=== PATIENT | female | born 2000 | race Caucasian/White ===

== ENCOUNTER 2020-09-11 11:17 | Observation (INO) | payer MEDICAID ==
[~2020-09-11] VITALS: Ht 157.5 cm; Wt 75.0 kg
[2020-09-11] MEDS ORDERED: D5%-LACTATED RINGERS 1,000 ML IV SCH (12:00)
[2020-09-11] MEDS ORDERED: PLEASE ENTER HEIGHT AND WEIGHT MC SCH (12:00)
[2020-09-11 12:14] VITALS: BP 125/60
[2020-09-11 12:23] LABS: BASOPHILS % (AUTO) 0 % (0-1); EOSINOPHILS % (AUTO) 0 % (1-7); LYMPHOCYTES % (AUTO) 11 % (22-44); MEAN CORPUSCULAR HEMOGLOBIN 28.7 pg (27.0-34.8); MEAN CORPUSCULAR HGB CONC 32.9 g/dL (32.4-35.8); MEAN PLATELET VOLUME 8.5 fL (7.4-10.4); MONOCYTES % (AUTO) 4 % (2-9); NEUTROPHILS % (AUTO) 85 % (42-75); PLATELET COUNT 127 x10^3/uL (130-400); RED BLOOD COUNT 3.91 x10^6/uL (3.82-5.3); RED CELL DISTRIBUTION WIDTH 22.6 % (9.6-15.2)
[2020-09-11 12:38] LABS: ALBUMIN 2.8 g/dL (3.4-5.0); ANION GAP 6 mmol/L (5-15); CALCIUM 9.1 mg/dL (8.5-10.1); CHLORIDE 109 mmol/L (98-107)
[2020-09-11 12:42] LABS: ALANINE AMINOTRANSFERASE 10 U/L (12-78); ALKALINE PHOSPHATASE 110 U/L (45-117); BILIRUBIN,TOTAL 0.3 mg/dL (0.2-1.0); CREATININE 0.53 mg/dL (0.55-1.02); TOTAL PROTEIN 6.3 g/dL (6.4-8.2)
[2020-09-11 12:49] LABS: MD MORPH REVIEW ONLY; OVALOCYTES 1+; TEAR DROPS 1+
[2020-09-11 12:50] LABS: <PLATELET ESTIMATE> DECREASED; <PLT MORPHOLOGY> NORMAL PLT MORPH; POLYCHROMASIA 1+
[2020-09-11 13:05] LABS: MICROSCOPIC INDICATED
[2020-09-11] MEDS ORDERED: ENOX60SY4 SC (14:01)
[2020-09-11] MEDS ORDERED: PEDI1TAB35 PO (14:03)
[2020-09-11 14:20] LABS: AMPHETAMINE SCREEN, URINE Negative (Negative); BARBITURATE SCREEN, URINE Negative (Negative); BENZODIAZEPINE SCREEN, URINE Negative (Negative); CANNABINOID SCREEN, URINE Negative (Negative); COCAINE SCREEN, URINE Negative (Negative); METHADONE SCREEN, URINE Negative (Negative); OPIATE SCREEN, URINE Negative (Negative)
[2020-09-11] MEDS ORDERED: LACTATED RINGERS 1,000 ML IV SCH (19:00)
== END 2020-09-11 19:38 | disposition home or self-care (01) ==
LOC: LDOP 11:17 → LDIP 14:53
PROVIDERS: ADMIT Obstetrics & Gynecology Maternal & Fetal Medicine; ATTEND Obstetrics & Gynecology Maternal & Fetal Medicine
DX: O36.5930 Maternal care for other known or suspected poor fetal growth, third trimester, not applicable or unspecified (principal); Z20.828 Contact with and (suspected) exposure to other viral communicable diseases; O30.033 Twin pregnancy, monochorionic/diamniotic, third trimester; Z3A.33 33 weeks gestation of pregnancy; Z79.899 Other long term (current) drug therapy
CPT/HCPCS: 36415; 59025; 80053; 80307; 81001; 85025; 85520; 86850; 86900; 87086; 87635; 96360; 96361; G0378; J7120; J7121

== ENCOUNTER 2020-09-25 10:39 | Inpatient (IN) | payer MEDICAID ==
[~2020-09-25] VITALS: Ht 157.5 cm; Wt 77.0 kg
[~2020-09-25 10:39] MED LIST: ENOX60SY4 SC; PEDI1TAB35 PO
[2020-09-25] MEDS ORDERED: METOCLOPRAMIDE 5 MG/ML, 2ML ONE (14:16)
[2020-09-25] MEDS ORDERED: OXYTOCIN 30U/ 0.9% NaCL 500ML 500 ML ONE (14:16)
[2020-09-25] MEDS ORDERED: NEWBORN KIT ONE (14:16)
[2020-09-25] MEDS ORDERED: SODIUM CITRATE/CITRIC ACID 15 ML UDC ONE (14:16)
[2020-09-25] MEDS ORDERED: LACTATED RINGERS 1,000 ML IVBOLUS ONE (14:30)
[2020-09-25] MEDS ORDERED: SODIUM CITRATE/CITRIC ACID 30 ML UDC PO ONE (14:30)
[2020-09-25] MEDS ORDERED: METOCLOPRAMIDE 5 MG/ML, 2ML IV ONE (14:30)
[2020-09-25 15:12] LABS: BASOPHILS % (AUTO) 0 % (0-1); EOSINOPHILS % (AUTO) 0 % (1-7); LYMPHOCYTES % (AUTO) 15 % (22-44); MEAN CORPUSCULAR HEMOGLOBIN 29.2 pg (27.0-34.8); MEAN CORPUSCULAR HGB CONC 33.1 g/dL (32.4-35.8); MEAN PLATELET VOLUME 8.1 fL (7.4-10.4); MONOCYTES % (AUTO) 6 % (2-9); NEUTROPHILS % (AUTO) 79 % (42-75); PLATELET COUNT 124 x10^3/uL (130-400); RED BLOOD COUNT 4.26 x10^6/uL (3.82-5.3)
[2020-09-25 15:13] VITALS: BP 116/60
[2020-09-25 15:40] LABS: MD NO
[2020-09-25] MEDS ORDERED: morphine SULFATE/PF 0.5 MG/ML, 10ML ONE (17:33)
[2020-09-25] MEDS ORDERED: DEXAMETHASONE 4 MG/ML, 1ML ONE (17:36)
[2020-09-25] MEDS ORDERED: SODIUM CHLORIDE 0.9% PF 10ML ONE ×2 (17:36→17:52)
[2020-09-25] MEDS ORDERED: OXYTOCIN 10 UNITS/ML, 1ML ONE (17:36)
[2020-09-25] MEDS ORDERED: CEFAZOLIN 1,000 MG ONE (17:36)
[2020-09-25] MEDS ORDERED: KETOROLAC 30 MG/1 ML ONE (17:36)
[2020-09-25] MEDS ORDERED: ONDANSETRON 2MG/ML, 2ML ONE (17:36)
[2020-09-25] MEDS ORDERED: PHENYLEPHRINE 10 MG/ML ONE (17:52)
[2020-09-25] MEDS ORDERED: SIMETHICONE 80 MG CHEW TAB PO PRN (19:00)
[2020-09-25] MEDS ORDERED: MISOPROSTOL 200 MCG TABLET PR PRN (19:00)
[2020-09-25] MEDS: LACTATED RINGERS 1,000 ML IV SCH ×2 (19:00→19:42)
[2020-09-25] MEDS ORDERED: CARBOPROST TROMETHAMINE 250 MCG/ML, 1ML IM PRN (19:00)
[2020-09-25] MEDS ORDERED: METHYLERGONOVINE 0.2 MG/ML IM PRN (19:00)
[2020-09-25] MEDS ORDERED: ONDANSETRON 2MG/ML, 2ML IV PRN (19:00)
[2020-09-25] MEDS ORDERED: ACETAMINOPHEN 325 MG TABLET PO PRN (19:00)
[2020-09-25] MEDS ORDERED: METHYLERGONOVINE 0.2 MG/ML IM ONE (19:10)
[2020-09-25] MEDS: OXYTOCIN 30U/ 0.9% NaCL 500ML 500 ML IV SCH (19:45)
[2020-09-25 20:45] VITALS: BP 108/48
[2020-09-25] MEDS ORDERED: DIPHENHYDRAMINE 50 MG/ML, 1ML IVPush PRN (21:00)
[2020-09-25] MEDS ORDERED: ONDANSETRON 2MG/ML, 2ML IVPush PRN (21:00)
[2020-09-25] MEDS ORDERED: morphine SULFATE 10 MG/ML, 1ML IVPush PRN (21:00)
[2020-09-25] MEDS: OXYcodone/APAP 5/325MG TABLET PO PRN ×2 (22:29→22:30)
[2020-09-26] VITALS: BP 113/73
[2020-09-26 02:35] LABS: BASOPHILS % (AUTO) 0 % (0-1); EOSINOPHILS % (AUTO) 0 % (1-7); LYMPHOCYTES % (AUTO) 7 % (22-44); MEAN CORPUSCULAR HEMOGLOBIN 29.1 pg (27.0-34.8); MEAN CORPUSCULAR HGB CONC 32.9 g/dL (32.4-35.8); MEAN PLATELET VOLUME 8.6 fL (7.4-10.4); MONOCYTES % (AUTO) 5 % (2-9); NEUTROPHILS % (AUTO) 89 % (42-75); PLATELET COUNT 122 x10^3/uL (130-400); RED BLOOD COUNT 4.16 x10^6/uL (3.82-5.3)
[2020-09-26 02:55] LABS: MD NO
[2020-09-26] MEDS: LACTATED RINGERS 1,000 ML IV SCH ×2 (03:00→05:00)
[2020-09-26] MEDS: OXYcodone/APAP 5/325MG TABLET PO PRN ×4 (04:26→17:42)
[2020-09-26 04:30] VITALS: BP 104/68
[2020-09-26] MEDS: OXYTOCIN 30U/ 0.9% NaCL 500ML 500 ML IV SCH (05:00)
[2020-09-26] MEDS: DOCUSATE 100 MG CAPSULE PO PRN ×2 (07:38→19:14)
[2020-09-26] MEDS: PRENATAL VIT/IRON/FA 1 EACH TABLET PO SCH (07:38)
[2020-09-26 07:50] VITALS: BP 106/74
[2020-09-26 13:36] VITALS: BP 109/70
[2020-09-26] MEDS: ENOXAPARIN 60 MG/0.6 ML SQ SCH (19:14)
[2020-09-26 20:00] VITALS: BP 106/69
[2020-09-26] MEDS ORDERED: DIPHENHYDRAMINE 25 MG CAPSULE ONE (21:56)
[2020-09-26] MEDS: OXYcodone IR 5MG TABLET PO PRN (22:02)
[2020-09-27] MEDS: OXYcodone IR 5MG TABLET PO PRN ×4 (02:28→20:33)
[2020-09-27] MEDS ORDERED: DIPHENHYDRAMINE 50 MG/ML, 1ML IVPush PRN (03:00)
[2020-09-27] MEDS: OXYcodone/APAP 5/325MG TABLET PO PRN (06:43)
[2020-09-27] MEDS: ENOXAPARIN 60 MG/0.6 ML SQ SCH ×2 (06:43→18:35)
[2020-09-27] MEDS: PRENATAL VIT/IRON/FA 1 EACH TABLET PO SCH (09:49)
[2020-09-27] MEDS: DOCUSATE 100 MG CAPSULE PO PRN ×2 (09:49→19:46)
[2020-09-27] MEDS: ACETAMINOPHEN 325 MG TABLET PO PRN ×2 (14:04→19:47)
[2020-09-27] MEDS: DIPHENHYDRAMINE 25 MG CAPSULE PO PRN ×2 (16:18→21:59)
[2020-09-27 19:52] VITALS: BP 111/70
[2020-09-28] MEDS: ACETAMINOPHEN 325 MG TABLET PO PRN ×5 (00:41→19:14)
[2020-09-28] MEDS: OXYcodone IR 5MG TABLET PO PRN ×6 (00:42→22:34)
[2020-09-28] MEDS: ENOXAPARIN 60 MG/0.6 ML SQ SCH ×2 (07:29→19:14)
[2020-09-28 07:30] VITALS: BP 104/69
[2020-09-28] MEDS ORDERED: DOCU-186 PO (09:38)
[2020-09-28] MEDS ORDERED: OXYcodone/APAP 5/325MG PO (09:38)
[2020-09-28] MEDS: DOCUSATE 100 MG CAPSULE PO PRN ×2 (09:51→19:14)
[2020-09-28] MEDS: PRENATAL VIT/IRON/FA 1 EACH TABLET PO SCH (09:51)
[2020-09-28 19:12] VITALS: BP 110/74
[2020-09-29] MEDS: ACETAMINOPHEN 325 MG TABLET PO PRN ×2 (00:42→12:33)
[2020-09-29] MEDS: OXYcodone IR 5MG TABLET PO PRN ×3 (03:12→12:33)
[2020-09-29] MEDS: ENOXAPARIN 60 MG/0.6 ML SQ SCH (07:15)
[2020-09-29 07:45] VITALS: BP 135/89
[2020-09-29] MEDS: PRENATAL VIT/IRON/FA 1 EACH TABLET PO SCH (07:51)
[2020-09-29] MEDS: DOCUSATE 100 MG CAPSULE PO PRN (07:51)
== END 2020-09-29 12:40 | disposition home or self-care (01) | DRG 540 ==
LOC: LDIP 14:02 → 2NW 20:29
PROVIDERS: ADMIT Obstetrics & Gynecology Maternal & Fetal Medicine; ATTEND Obstetrics & Gynecology Maternal & Fetal Medicine
PROC: 10D00Z1 Extraction of Products of Conception, Low, Open Approach (ICD-10-PCS; principal; 2020-09-25)
DX: O36.5931 Maternal care for other known or suspected poor fetal growth, third trimester, fetus 1 (principal); O32.1XX2 Maternal care for breech presentation, fetus 2; O32.2XX2 Maternal care for transverse and oblique lie, fetus 2; Z20.822 Contact with and (suspected) exposure to COVID-19; Z37.2 Twins, both liveborn; Z3A.35 35 weeks gestation of pregnancy; Z83.2 Family history of diseases of the blood and blood-forming organs and certain disorders involving the immune mechanism; Z86.718 Personal history of other venous thrombosis and embolism; Z86.711 Personal history of pulmonary embolism; O30.033 Twin pregnancy, monochorionic/diamniotic, third trimester; O69.81X0 Labor and delivery complicated by cord around neck, without compression, not applicable or unspecified; O99.12 Other diseases of the blood and blood-forming organs and certain disorders involving the immune mechanism complicating childbirth; D68.51 Activated protein C resistance
CPT/HCPCS: 36415; 82565; 85025; 85520; 86592; 86850; 86900; 86923; 87635; 88307; G0378; J0690; J1100; J1650; J1885; J2274; J2405; J1200; J2210; J2270; J2370; J2590; J2765; J7120; Q0163

== ENCOUNTER → 2020-10-01 | Outpatient (CLI) | payer MEDICAID ==
[~2020-10-01] MED LIST changes: +DOCU-186 PO; +OXYcodone/APAP 5/325MG PO
== END | disposition home or self-care (01) ==
LOC: WOUND 13:50
PROVIDERS: ATTEND Nurse Practitioner Family
DX: O90.0 Disruption of cesarean delivery wound (principal); Z79.899 Other long term (current) drug therapy; Z86.711 Personal history of pulmonary embolism; Z86.718 Personal history of other venous thrombosis and embolism; Y83.8 Other surgical procedures as the cause of abnormal reaction of the patient, or of later complication, without mention of misadventure at the time of the procedure; Y92.238 Other place in hospital as the place of occurrence of the external cause
CPT/HCPCS: 99214